=== PATIENT | female | born 1950 | race Caucasian/White ===

== ENCOUNTER 2018-04-07 14:32 | Inpatient (IN) | payer OTHER ==
[~2018-04-07] VITALS: Ht 170.2 cm; Wt 76.7 kg
[~2018-04-07 14:32] MED LIST: GLYBURIDE5 MG PO; LASIX20 MG PO; LIPITOR40 MG PO; LISINOPRIL10 MG PO; LO-DOSE ASPIRIN81 M2 PO; LORTAB 5-325 M1 EACH PO; MELOXICAM15 MG PO; METFORMIN HCL1000 MG PO; PERCOCET 10/1 TABLET PO; PERCOCET 5/31 TABLET PO; PRILOSEC20 MG PO; TOPROL XL25 MG PO
[2018-04-07 15:21] LABS: BASOPHIL (%) 0.5 % (0-1); BASOPHIL COUNT 0.1 K/uL (0-0.1); EOSINOPHIL (%) 0.1 % (0-5); HEMOGLOBIN 15.5 G/DL (11.9-15.5); IMMATURE GRANULOCYTE (%) 0.4 % (0.0-0.7); MCH 26.5 PG (29.0-34.0); MCHC 32.3 G/DL (30.0-36.0); MCV 82.2 FL (83-99); MONOCYTE (%) 5.8 % (3-12); MONOCYTE COUNT 0.8 K/uL (0-0.8); NEUTROPHIL (%) 78.2 % (45-76); NEUTROPHIL COUNT 10.5 K/uL (1.8-6.4); PLATELET COUNT 222 K/uL (156-360); RBC DIS.WIDTH-CV 15.9 % (11.8-14.6); RBC DIS.WIDTH-SD 46.6 % (39-53); RED BLOOD COUNT 5.84 M/uL (3.80-5.20); WHITE BLOOD COUNT 13.5 K/uL (4.1-10.2)
[2018-04-07 15:40] LABS: CARBOXY HGB 2.1 % (0-5); COMMENTS - BLOOD GASES A+C+; DEVICE ROOM AIR; FI02 21 %; O2 FLOW 0 L/MIN; PCO2 31 mm Hg (35-45); PO2 102 mm Hg (80-100); SITE RIGHT RADIAL; TOTAL RESP RATE 20 resp/min; pH 7.37 (7.35-7.45)
[2018-04-07 15:41] LABS: ALBUMIN 4.9 g/dL (3.2-4.8); CHLORIDE 87 mEq/L (99-109); POTASSIUM 5.2 mEq/L (3.7-5.4); SODIUM 129 mEq/L (136-147)
[2018-04-07 15:41] LABS: BASE EXCESS -6.1 mEq/L (-3 to +3); BICARBONATE 17.9 mEq/L (22-26); METHEMOGLOBIN 0.9 % (0-1.5)
[2018-04-07 15:43] LABS: TOTAL PROTEIN 9.3 g/dL (6.4-8.3)
[2018-04-07 15:45] LABS: TOTAL BILIRUBIN 0.7 mg/dL (0.0-1.0); TROP-I INTERPRETATION NEGATIVE; TROPONIN-I 0.07 ng/mL (0.0-0.30)
[2018-04-07 15:47] LABS: ALKALINE PHOSPHATASE 118 IU/L (3-129); CREATININE 1.8 mg/dL (0.6-1.3); GFR ESTIMATE (CALCULATED) 30 mL/min/
[2018-04-07 15:48] LABS: UREA NITROGEN (BUN) 27 mg/dL (9-23)
[2018-04-07 15:49] LABS: AST (GOT) 18 IU/L (2-34)
[2018-04-07 15:50] LABS: ALT (GPT) 27 IU/L (3-49)
[2018-04-07 15:51] LABS: APPEARANCE CLEAR ((CLEAR)); BILIRUBIN NEGATIVE; BLOOD SMALL; COLOR STRAW ((YELLOW)); GLUCOSE (STRIP) >=500; KETONES 5; LEUKOCYTES NEGATIVE; NITRITE NEGATIVE; PROTEIN (STRIP) 30; SPECIFIC GRAVITY 1.029 (1.000-1.030); UROBILINOGEN 0.2 MG/DL (0.2-1.0)
[2018-04-07 15:54] LABS: GLUCOSE 997 mg/dL (70-99)
[2018-04-07 15:58] LABS: BACTERIA NONE SEEN /HPF; EPITHELIAL CELLS RARE /HPF; MUCUS NONE SEEN /LPF; RED BLOOD CELLS 0-5 /HPF (0-5); UCUL ADDED? NO; WHITE BLOOD CELLS 0-5 /HPF (0-5)
[2018-04-07] MEDS ORDERED: LYRICA75 MG PO (17:00)
[2018-04-07] MEDS ORDERED: NYSTATIN15 GM TP (17:01)
[2018-04-07] MEDS ORDERED: PROAIR HFA8.5 GM IH (17:01)
[2018-04-07] MEDS ORDERED: DIFLUCAN150 MG PO (17:01)
[2018-04-07] MEDS ORDERED: DELTASONE20 M1 PO (17:02)
[2018-04-07 17:57] LABS: UREA NITROGEN (BUN) 24 mg/dL (9-23)
[2018-04-07 18:00] LABS: CHLORIDE 100 mEq/L (99-109); CREATININE 1.3 mg/dL (0.6-1.3); GFR ESTIMATE (CALCULATED) 44 mL/min/; GLUCOSE 660 mg/dL (70-99); POTASSIUM 3.7 mEq/L (3.7-5.4); SODIUM 137 mEq/L (136-147)
[2018-04-07 19:07] LABS: CHLORIDE 99 mEq/L (99-109); POTASSIUM 4.2 mEq/L (3.7-5.4); SODIUM 137 mEq/L (136-147)
[2018-04-07 19:12] LABS: PHOSPHORUS 3.4 mg/dL (2.5-4.9)
[2018-04-07 19:13] LABS: CREATININE 1.2 mg/dL (0.6-1.3); GFR ESTIMATE (CALCULATED) 48 mL/min/
[2018-04-07 19:14] LABS: UREA NITROGEN (BUN) 23 mg/dL (9-23)
[2018-04-07 19:21] LABS: GLUCOSE 588 mg/dL (70-99)
[2018-04-07 19:25] VITALS: BP 158/74
[2018-04-07 21:01] VITALS: BP 146/75
[2018-04-07 22:01] VITALS: BP 146/76
[2018-04-07 22:31] LABS: TROP-I INTERPRETATION NEGATIVE; TROPONIN-I 0.12 ng/mL (0.0-0.30)
[2018-04-07 23:01] VITALS: BP 136/67
[2018-04-08] VITALS (20 sets, daily range): BP systolic 91–143; BP diastolic 52–88
[2018-04-08 00:43] LABS: CHLORIDE 104 mEq/L (99-109); POTASSIUM 3.4 mEq/L (3.7-5.4); SODIUM 140 mEq/L (136-147)
[2018-04-08 00:48] LABS: PHOSPHORUS 2.3 mg/dL (2.5-4.9)
[2018-04-08 00:49] LABS: CREATININE 0.9 mg/dL (0.6-1.3); GFR ESTIMATE (CALCULATED) > 59 mL/min/; UREA NITROGEN (BUN) 20 mg/dL (9-23)
[2018-04-08 00:53] LABS: GLUCOSE 200 mg/dL (70-99)
[2018-04-08 05:37] LABS: CHLORIDE 102 MEQ/L (99-109); CREATININE 0.8 MG/DL (0.6-1.3); GFR ESTIMATE (CALCULATED) > 59 mL/min/; GLUCOSE 176 mg/dL (70-99); PHOSPHORUS 2.9 mg/dL (2.5-4.9); POTASSIUM 3.8 MEQ/L (3.7-5.4); SODIUM 138 MEQ/L (136-147); UREA NITROGEN (BUN) 19 mg/dL (9-23)
[2018-04-08 06:08] LABS: TROP-I INTERPRETATION NEGATIVE; TROPONIN-I 0.13 ng/mL (0.0-0.30)
[2018-04-08 08:39] LABS: CHLORIDE 103 MEQ/L (99-109); CREATININE 0.8 MG/DL (0.6-1.3); GFR ESTIMATE (CALCULATED) > 59 mL/min/; GLUCOSE 232 mg/dL (70-99); PHOSPHORUS 3.4 mg/dL (2.5-4.9); POTASSIUM 3.6 MEQ/L (3.7-5.4); SODIUM 138 MEQ/L (136-147); UREA NITROGEN (BUN) 19 mg/dL (9-23)
[2018-04-08 12:04] LABS: HEMOGLOBIN A1c (GLYCOHEMOGLOB) 14.4 % (Below 5.7)
[2018-04-08 12:25] LABS: CHLORIDE 103 MEQ/L (99-109); CREATININE 0.8 MG/DL (0.6-1.3); GFR ESTIMATE (CALCULATED) > 59 mL/min/; GLUCOSE 157 mg/dL (70-99); PHOSPHORUS 2.7 mg/dL (2.5-4.9); POTASSIUM 3.4 MEQ/L (3.7-5.4); SODIUM 137 MEQ/L (136-147); UREA NITROGEN (BUN) 18 mg/dL (9-23)
[2018-04-08 12:29] LABS: TROP-I INTERPRETATION NEGATIVE
[2018-04-08 16:34] LABS: CHLORIDE 104 MEQ/L (99-109); CREATININE 0.7 MG/DL (0.6-1.3); GFR ESTIMATE (CALCULATED) > 59 mL/min/; GLUCOSE 171 mg/dL (70-99); PHOSPHORUS 2.5 mg/dL (2.5-4.9); POTASSIUM 3.5 MEQ/L (3.7-5.4); SODIUM 137 MEQ/L (136-147); UREA NITROGEN (BUN) 16 mg/dL (9-23)
[2018-04-09 03:40] VITALS: BP 123/75
[2018-04-09 06:56] LABS: BASOPHIL COUNT 0.1 K/uL (0-0.1); EOSINOPHIL (%) 1.4 % (0-5); EOSINOPHIL COUNT 0.1 K/uL (0-0.3); HEMATOCRIT 37.7 % (36.0-46.0); IMMATURE GRANULOCYTE (%) 0.4 % (0.0-0.7); LYMPHOCYTE (%) 42.1 % (15-42); MCH 26.3 PG (29.0-34.0); MCHC 32.4 G/DL (30.0-36.0); MCV 81.4 FL (83-99); MONOCYTE (%) 5.6 % (3-12); MONOCYTE COUNT 0.4 K/uL (0-0.8); NEUTROPHIL (%) 49.5 % (45-76); NEUTROPHIL COUNT 3.5 K/uL (1.8-6.4); RBC DIS.WIDTH-CV 15.6 % (11.8-14.6); RBC DIS.WIDTH-SD 46.4 % (39-53); WHITE BLOOD COUNT 7.1 K/uL (4.1-10.2)
[2018-04-09 07:00] VITALS: BP 114/77
[2018-04-09 07:13] LABS: PLATELET CLUMPS PRESENT - PLATELET COUNT APPEARS DECREASED
[2018-04-09 07:14] LABS: ALBUMIN 3.4 G/DL (3.2-4.8); ALKALINE PHOSPHATASE 59 IU/L (3-129); ALT (GPT) 18 IU/L (3-49); AST (GOT) 23 IU/L (2-34); CHLORIDE 102 MEQ/L (99-109); CREATININE 0.8 MG/DL (0.6-1.3); GFR ESTIMATE (CALCULATED) > 59 mL/min/; MAGNESIUM 1.7 mg/dl (1.3-2.7); POTASSIUM 3.8 MEQ/L (3.7-5.4); SODIUM 136 MEQ/L (136-147); TOTAL BILIRUBIN 0.4 MG/DL (0.0-1.0); TOTAL PROTEIN 5.9 G/DL (6.4-8.3); UREA NITROGEN (BUN) 13 mg/dL (9-23)
[2018-04-09 07:16] LABS: GLUCOSE 327 mg/dL (70-99); HEMOGLOBIN 12.2 G/DL (11.9-15.5); PLATELET COUNT UNABLE TO REPORT K/uL (156-360); RED BLOOD COUNT 4.63 M/uL (3.80-5.20)
[2018-04-09 11:01] VITALS: BP 148/69
[2018-04-09 14:59] VITALS: BP 144/81
[2018-04-09 19:16] VITALS: BP 142/65
[2018-04-10 00:41] VITALS: BP 163/79
[2018-04-10 04:28] VITALS: BP 129/60
[2018-04-10 06:33] LABS: BASOPHIL (%) 1.1 % (0-1); BASOPHIL COUNT 0.1 K/uL (0-0.1); EOSINOPHIL (%) 1.8 % (0-5); EOSINOPHIL COUNT 0.1 K/uL (0-0.3); HEMATOCRIT 38.5 % (36.0-46.0); HEMOGLOBIN 12.5 G/DL (11.9-15.5); IMMATURE GRANULOCYTE (%) 0.6 % (0.0-0.7); LYMPHOCYTE (%) 40.9 % (15-42); LYMPHOCYTE COUNT 2.7 K/uL (1.0-2.8); MCHC 32.5 G/DL (30.0-36.0); MCV 80.2 FL (83-99); MONOCYTE (%) 6.4 % (3-12); MONOCYTE COUNT 0.4 K/uL (0-0.8); NEUTROPHIL (%) 49.2 % (45-76); NEUTROPHIL COUNT 3.3 K/uL (1.8-6.4); RBC DIS.WIDTH-CV 15.5 % (11.8-14.6); WHITE BLOOD COUNT 6.6 K/uL (4.1-10.2)
[2018-04-10 06:35] LABS: PLATELET COUNT 136 K/uL (156-360)
[2018-04-10 06:58] LABS: ALBUMIN 3.7 G/DL (3.2-4.8); ALKALINE PHOSPHATASE 58 IU/L (3-129); ALT (GPT) 18 IU/L (3-49); AST (GOT) 18 IU/L (2-34); CHLORIDE 100 MEQ/L (99-109); CREATININE 0.8 MG/DL (0.6-1.3); GFR ESTIMATE (CALCULATED) > 59 mL/min/; GLUCOSE 265 mg/dL (70-99); MAGNESIUM 1.7 mg/dl (1.3-2.7); POTASSIUM 3.8 MEQ/L (3.7-5.4); SODIUM 136 MEQ/L (136-147); TOTAL PROTEIN 6.5 G/DL (6.4-8.3); UREA NITROGEN (BUN) 12 mg/dL (9-23)
[2018-04-10 07:01] LABS: PHOSPHORUS 3.8 mg/dL (2.5-4.9); TOTAL BILIRUBIN 0.5 MG/DL (0.0-1.0)
[2018-04-10 07:22] VITALS: BP 121/73
[2018-04-10 11:31] VITALS: BP 133/69
[2018-04-10] MEDS ORDERED: GLYBURIDE5 MG PO (11:57)
[2018-04-10] MEDS ORDERED: LEVEMIR FL100 UNIT/1 SC (11:57)
[2018-04-10] MEDS ORDERED: METFORMIN HCL1000 MG PO (11:57)
== END 2018-04-10 14:59 | disposition home or self-care (01) | DRG 638 ==
LOC: EME 14:32 → EDOF 17:56 → 5SOUTH 17:56 → ENRESERV 17:59 → 4WEST 19:22 → ENRESERV 04-08 19:52 → 5SOUTH 04-08 21:32
PROVIDERS: Emergency Medicine; Internal Medicine; Internal Medicine Critical Care Medicine; Surgery
DX: E11.01 Type 2 diabetes mellitus with hyperosmolarity with coma (principal); I48.92 Unspecified atrial flutter; R00.0 Tachycardia, unspecified; J44.9 Chronic obstructive pulmonary disease, unspecified; I25.10 Atherosclerotic heart disease of native coronary artery without angina pectoris; E78.5 Hyperlipidemia, unspecified; N17.9 Acute kidney failure, unspecified; E87.1 Hypo-osmolality and hyponatremia; F17.200 Nicotine dependence, unspecified, uncomplicated; B37.9 Candidiasis, unspecified; Z85.3 Personal history of malignant neoplasm of breast; I25.2 Old myocardial infarction; Z79.4 Long term (current) use of insulin; Z95.1 Presence of aortocoronary bypass graft; I10 Essential (primary) hypertension
CPT/HCPCS: 36600; 71045; 80048; 80048 91; 80053; 81003; 82010; 82948; 83036; 83735; 83880; 84100; 84484; 84999; 85025; 87641; 93005; 93970; 94640; 94760; 94799; 99281; 99285; J1815; J3480; J7030; J7040; J7050